=== PATIENT | female | born 1940 ===

== ENCOUNTER 2022-07-18 11:37 | Outpatient (CLI) | payer SELFPAY | END 2022-07-18 11:38 | disposition EMS.NT | LOC: EMS 11:37 | DX: R42 Dizziness and giddiness (principal) ==

== ENCOUNTER 2024-09-30 11:04 | Observation (INO) ==
[2024-09-30 11:28] LABS: BASOPHILS % (AUTO) 0.4 %; EOSINOPHILS # (AUTO) 0.1 10^3/uL (0.0-0.7); EOSINOPHILS % (AUTO) 1.2 %; HGB - HEMOGLOBIN 11.8 g/dL (12.0-16.0); LYMPHOCYTES # (AUTO) 1.5 10^3/uL (1.5-3.5); LYMPHOCYTES % (AUTO) 29.9 %; MEAN CORPUSCULAR HEMOGLOBIN 30.5 pg (27.0-31.0); MEAN CORPUSCULAR HGB CONC 32.8 g/dL (32.0-36.0); MEAN PLATELET VOLUME 8.3 fL (7.9-10.8); MONOCYTES # (AUTO) 0.6 10^3/uL (0.0-1.0); MONOCYTES % (AUTO) 12.9 %; NEUTROPHILS # (AUTO) 2.7 10^3/uL (1.5-6.6); NEUTROPHILS % (AUTO) 55.2 %; PLT - PLATELET COUNT 273 10^3/uL (130-450); RED BLOOD COUNT 3.87 10^6/uL (4.20-5.40); RED CELL DISTRIBUTION WIDTH 12.3 % (12.0-15.0); WHITE BLOOD COUNT 4.9 x10^3/uL (4.8-10.8)
[2024-09-30 11:44] LABS: ALBUMIN 4.2 g/dL (3.2-5.5); ALBUMIN/GLOBULIN RATIO 1.4 (1.0-2.2); BILIRUBIN,TOTAL 1.1 mg/dL (0.2-1.0); CALCIUM 9.6 mg/dL (8.5-10.3); CREATININE 1.2 mg/dL (0.6-1.3); MAGNESIUM 1.8 mg/dL (1.7-2.3); POTASSIUM 3.6 mmol/L (3.5-4.5); TOTAL PROTEIN 7.3 g/dL (6.4-8.9)
--- NOTE | 2024-09-30 11:56 | XRAY Report ---
PROCEDURE: XR Chest 1V INDICATIONS: syncope TECHNIQUE: One view of the chest was acquired. COMPARISON: None FINDINGS: Surgical changes and devices: None. Lungs and pleura: No pleural effusions or pneumothorax. Lungs are clear. Atherosclerotic vascular calcification noted in the aortic arch. Chronic interstitial changes Mediastinum: Mediastinal contours appear normal. Heart size is normal. Bones and chest wall: No suspicious bony lesions. Overlying soft tissues appear unremarkable. IMPRESSION: No acute cardiopulmonary findings Reviewed by: Alton Artis MD on 09/30/2024 10:55 AM [facility] Approved by: Alton Artis MD on 09/30/2024 10:55 AM [facility] Station ID: [id number]
[2024-09-30 12:01] LABS: BILIRUBIN,URINE NEGATIVE (NEGATIVE); CLARITY,URINE CLOUDY (CLEAR); GLUCOSE, URINE (UA) >=1000 mg/dL (NEGATIVE); KETONES,URINE (UA) NEGATIVE (NEGATIVE); LEUKOCYTE ESTERASE, URINE MODERATE (NEGATIVE); NITRITE,URINE NEGATIVE (NEGATIVE); OCCULT BLOOD,URINE SMALL (NEGATIVE); PROTEIN,URINE TRACE mg/dL (NEGATIVE); UROBILINOGEN,URINE 0.2 (NORMAL) E.U./dL (NORMAL)
--- NOTE | 2024-09-30 12:04 | ED Physician Documentation ---
History of Present Illness Stated complaint Stated Complaint: SYNCOPE Chief complaint Chief Complaint: Neuro History obtained from History obtained from: Patient and Family (Son) History of Present Illness Timing: Prior to arrival Additonal information Additional information: Patient is an 84-year-old female with past medical history of syncopal episodes, history of hypertension and CKD stage III. Patient was brought in by EMS today after she had a syncopal episode around 1015. Patient's symptoms started around 1015 while she was washing chicken she felt slightly lightheaded and fell backwards. Daughter witnessed this event stating she had cramping in her right arm twice when this occurred. Meds/Allgy Home Medications Ambulatory Orders Medication Instructions Recorded Confirmed alendronate 70 mg tablet (Fosamax) 70 mg PO QWEEK 09/30/24 09/30/24 empagliflozin 25 mg tablet 25 mg PO DAILY 09/30/24 09/30/24 (Jardiance) levothyroxine 88 mcg tablet 88 mcg PO DAILY 09/30/24 09/30/24 (Euthyrox) olmesartan 40 mg PO DAILY 09/30/24 09/30/24 Allergies Allergies Allergy/AdvReac Type Severity Reaction Status Date / Time No Known Drug Allergies Allergy Verified 09/30/24 11:42 [facility] Medical History Medical History (Updated 09/30/24 @ 14:26 by Autumn Jackson MD) Seizure disorder Osteoporosis Type II diabetes mellitus, well controlled Hypertension Family History Family History (Updated 09/30/24 @ 17:51 by Autumn Jackson MD) Father No problems noted. Mother Pancreatic cancer Sister No problems noted. Son Well adolescent visit Daughter Well adolescent visit Social History Social History (Updated 09/30/24 @ 18:21 by Autumn Jackson MD) Smoking Status: Former smoker If you are a former smoker, when did you quit? (Date/Year): 1962 Number of Years Smoked: 8 How many cigarettes a day do you smoke? (20 cigarettes=1 Pk): 20 Second hand tobacco smoke exposure: No Do you dip or chew tobacco?: No Do you vape?: No Living arrangement: At home Marital Status: Living Condition: With family More Information: Relationship: DPOA Living Situation Details: From [place]. In this country for decades. Was living in [place]. a few years ago. Children have decided she should not be living by herself and she now lives with a son in [place] (she has 4). Has a daughter who lives in [place]. Visiting daughter now. Daughter kimmy jacob goes up in the [place] and take mom, because patient's son in law is [place]. Had one ER visit in [place] for this problem. Physical Activity: Walking Level: Independent Physical - Functional Details: Cooks, Cleans, does not drive because she never did. Never uses durable medical equipment. Do you feel safe in your home environment?: Yes Suffered physical, verbal, emotional, or financial abuse?: No ETOH Use: None Substance Use: denies use Are you sexually active?: No Retired: Yes Exam Constitutional normal general appearance HENMT normocephalic Eyes PERRL and EOMs intact bilaterally Neck/C-Spine visual inspection normal and trachea midline Lymph no lymphadenopathy noted Chest inspection of chest normal and palpation of chest normal Respiratory breath sounds equal bilaterally, normal respiratory effort and clear to auscultation bilaterally Cardiovascular normal heart rate noted, regular rhythm noted, no gallop and no rub Gastrointestinal abdomen normal to inspection and abdomen soft to palpation Genitourinary no CVA tenderness Back/Pelvis spine normal to inspection No spine tenderness and no cervical spine tenderness Extremities normal to inspection No pain on palpation of upper and lower extremities Skin skin color normal, no lesions, no ecchymosis noted and no wounds Results Vitals Vitals: Vital Signs - 24 hr 09/30/24 11:17 09/30/24 11:23 09/30/24 11:37 Pulse Rate 64 64 Pulse Rate [Sitting] Pulse Rate [Standing] Pulse Rate [Supine] Respiratory Rate 26 H 19 Blood Pressure 133/64 H 133/64 H Blood Pressure [Sitting] Blood Pressure [Standing] Blood Pressure [Supine] O2 Saturation 96 96 Oxygen Delivery Method Room Air O2 Source Room air Room air Pain Intensity 0 0 09/30/24 12:04 09/30/24 13:23 Pulse Rate 72 Pulse Rate [Sitting] 69 Pulse Rate [Standing] 70 Pulse Rate [Supine] 66 Respiratory Rate 16 Blood Pressure 157/82 H Blood Pressure [Sitting] 156/81 H Blood Pressure [Standing] 157/82 H Blood Pressure [Supine] 145/71 H O2 Saturation 98 Oxygen Delivery Method O2 Source Room air Pain Intensity 0 Oxygen O2 Source Room air Labs Labs: Laboratory Tests 09/30/24 09/30/24 11:22 11:53 WBC 4.9 RBC 3.87 L Hgb 11.8 L Hct 36.0 L MCV 93.0 MCH 30.5 MCHC 32.8 RDW 12.3 Plt Count 273 MPV 8.3 Neut # (Auto) 2.7 Lymph # (Auto) 1.5 [place] # (Auto) 0.6 Eos # (Auto) 0.1 Baso # (Auto) 0.0 Absolute Nucleated RBC 0.00 Nucleated RBC % 0.0 Sodium 134 L Potassium 3.6 Chloride 100 L Carbon Dioxide 27 Anion Gap 7.0 BUN 19 Creatinine 1.2 Estimated GFR (MDRD) 43 L Glucose 133 H Calcium 9.6 Magnesium 1.8 Total Bilirubin 1.1 H AST 22 ALT 14 Alkaline Phosphatase 51 Troponin I High Sens 5.0 Total Protein 7.3 Albumin 4.2 Globulin 3.1 Albumin/Globulin Ratio 1.4 Urine Color YELLOW Urine Clarity CLOUDY Urine pH 6.0 Ur Specific [place] 1.010 Urine Protein TRACE Urine Glucose (UA) >=1000 H Urine Ketones NEGATIVE Urine Occult Blood SMALL H Urine Nitrite NEGATIVE Urine Bilirubin NEGATIVE Urine Urobilinogen 0.2 (NORMAL) Ur Leukocyte Esterase MODERATE H Urine RBC 0-5 Urine WBC >25 H Urine WBC Clumps PRESENT Ur Squamous Epith Cells FEW Squamous Urine Bacteria Moderate H Ur Microscopic Review INDICATED Urine Culture Comments INDICATED PD Medical Decision Making ED course Complexity details: reviewed old records and reviewed results ED course: Patient is an 84-year-old female presenting after syncopal episode at home witnessed by daughter lasting about 1 to 2 minutes. Patient has history of this and this episodes improved with similar to her previous. Her last episode of this was 1 week ago and prior to this it was about 2 years ago. Family notes it seems emotionally related and she has had workups in the past including ultrasounds stress tests and MRIs showing no acute findings. She previously was on antiepileptics for this but discontinued them due to adverse effects. She last went to the hospital for this about 2 years ago and had a negative workup so she was discharged home. They noted these episodes started back in 2018. Other than being emotionally charged they have no reasons for why they occur to patient. She notes symptoms feel similar she denies any persistent symptoms at this time. She is feeling more tired and slightly lightheaded while she was washing the chicken this morning. She denies hitting her head and episode lasted for about 1 to 2 minutes. Patient denies any pain in upper or lower extremities. Vitals are stable on arrival. Labs are stable here in the emergency department no significant leukocytosis signs of anemia CMP abnormalities. Urine does show signs of UTI. CT head shows chronic vascular changes but no acute findings. Chest x-ray shows no acute causes for patient's syncopal event Patient updated on reassuring findings however discussed with the hospitalist and they are agreeable with admission for cardiac monitoring given syncopal episode for the second time within the same week. Concern for possible arrhythmia as she has not had any imaging or workup done since 2018 for these symptoms. Patient did have an episode of incontinence with her syncopal episode as well as an episode of spasming of her arm she was not aware during these episodes. Hospitalist was made aware of this discussed further treatment patient can have an EEG done in the outpatient setting with cardiac monitoring here in the hospital. Patient and family agreeable with this plan. Discharge Plan Discharge Patient Disposition: ED Place in Observation Condition: Fair Clinical Impression: Episode of syncope Interventions: ED Admission Assessment Last Done: 09/30/24 14:43
[2024-09-30 12:10] LABS: BACTERIA,URINE Moderate /HPF (None Seen); RBC,URINE 0-5 /HPF (0-5); SQUAMOUS EPITHELIAL CELL,UR FEW Squamous (<= Few); WBC CLUMPS,URINE PRESENT; WBC,URINE >25 /HPF (0-5)
--- NOTE | 2024-09-30 12:13 | CT Report ---
PROCEDURE: CT Head WO INDICATIONS: head injury from fall TECHNIQUE: Helical axial CT of the brain was obtained without contrast and reformatted in multiple p lanes. Radiation dose reduction was achieved using automated exposure control or adjustment of mA and /or kV according to patient size. COMPARISON: None FINDINGS: CSF spaces: Ventricles are appropriate in size and position. No hydrocephalus. Basal cisterns unre markable. Brain: No midline shift. No intracranial masses or hemorrhage. Brown-white matter interface is norm al. Moderate atrophy and multifocal white matter chronic ischemic change noted. Atherosclerotic vascular calcification noted in the cavernous segments of both internal carotid arteries. Skull and face: Calvarium and skull base are unremarkable without suspicious lesion. Sinuses: Complete opacification of the left sphenoid sinus with osseous wall thickening IMPRESSION: Atrophy and chronic ischemic change without intracranial hemorrhage or mass effect. Chronic sphenoid mucosal sinus disease Reviewed by: Alton Artis MD on 09/30/2024 11:12 AM [facility] Approved by: Alton Artis MD on 09/30/2024 11:12 AM [facility] Station ID: [id number]
[2024-09-30] MEDS: cefTRIAXone 1 GM in SODIUM CHLORIDE 0.9% MINIBAG 100 ML IV STA (13:57)
--- NOTE | 2024-09-30 14:26 | HISTORY & PHYSICAL EXAMINATION ---
Chief Complaint Chief Complaint Chief Complaint: passing out after being dizzy History of Present Illness Admitted From Admitted From:: home with ambulance History Obtained From Records Reviewed: Expanse History obtained from: patient Exam Limitations: none. She prefers Kiswahili and I am bilingual. History of Present Illness HPI Comment/Other: This patient is a female who has a history of high blood pressure, hypothyroidism, diabetes, osteoporosis and recurrent lightheadedness/dizziness with occasional syncope since 2012. Every time she gets lightheaded or dizzy it usually lasts less than 10 minutes. However,, approximately 2017, she had luis fernando syncope and was evaluated in [place] and had quite a bit of a workup where it was felt that she may be having seizures and was placed on seizure medications. She is followed by Dr. Isauro Machado in [place]. After couple of years that medication was stopped because the patient felt asymptomatic and she did not want to take it anymore. In July 2022, EMS was called to the house because she was feeling lightheaded but she never had syncope. Declined transfer. In looking at the EMS report I am seeing that she had normal sinus rhythm with a normal AR interval and no blocks were seen. Blood pressure was a little low at 105. She tells me that the dizziness has been going on for very long time. Again sometimes associated with syncope. Sometimes not. She does not really get much warning. She denies any chest pain, palpitations, shortness of breath, Edema, or Orthopnea. The episodes were not associated with any specific exertion. Sometimes she is sitting down, sometimes she standing up. When she wakes up from them she is sometimes momentarily confused. But usually knows where she is and what is going on almost immediately. She is usually incontinent of urine. Twice, she has been incontinent of stool. She denies any memory loss. She states sometimes, with the seizures, she feels as if her ears are plugged up. She then had another episode of lightheaded and dizziness with syncope a week ago. Did not want to come to the ER. Today she was standing at the kitchen counter, washing some chicken, when she suddenly felt very tired, went to go sit down on a kitchen stool, and the next thing she knows, she is on the ground. No chest pain, no palpitations, no change in vision. Her daughter heard a crashing sound in the kitchen and went to see what was going on and found her mother on the floor looking up. She was not responsive for about 30 seconds and then able to answer questions. One of her hands was shaking and the right arm felt like it was getting a cramp. Was incontinent of urine. Subsequently she has recovered. There is no headache. No slurred speech. No blurred vision. No dysesthesia of 1 side of her body. Her blood pressure in the emergency room was 133/64. Pulse was 64. Respirations 26. 96% saturated on room air. Telemetry had normal sinus rhythm. EKG has normal sinus rhythm without any blocks. Her lab work had a sodium of 134. BUN and creatinine are relatively normal at 19 and 1.2. Random glucose 133 and a diabetic. Total bili is mildly elevated at 1.1 with normal liver enzymes. White cell count is normal at 4.9. Hemoglobin slightly low at 11.8. MCV is 93. We have no old records on her so I cannot tell if this anemia is new, or chronic. In looking at her urinalysis she may have a UTI. Specific gravity is normal at 1.010. So no dehydration. She does have glucosuria, occult blood, moderate leukocyte esterase but negative nitrates. White cell count greater than 25. She has a few squamous cells, moderate urine bacteria. Urine culture will be done Chest x-ray has no acute cardiopulmonary findings. CT of the head has atrophy and chronic ischemic changes without intracranial hemorrhage or mass effect. She has chronic sphenoid mucosal sinus disease. The emergency room provider and I discussed this case. This elderly female may or may not have seizures depending on the verbal history given by the family. But there is no indication that she has a history of first-degree, second-degree or third-degree heart block. There is also no recollection of her having any arrhythmia such as atrial fibrillation, SVT. She does not have congestive heart failure and the family says that as far as they know she does not have heart problems so I do not think there is nonsustained V. tach on the basis of ejection fraction. The patient will be placed in observation, placed on telemetry, and I will obtain an echo and an MRI. Meds/Allgy Home Medications Ambulatory Orders Medication Instructions Recorded Confirmed alendronate 70 mg tablet (Fosamax) 70 mg PO QWEEK 09/30/24 09/30/24 empagliflozin 25 mg tablet 25 mg PO DAILY 09/30/24 09/30/24 (Jardiance) levothyroxine 88 mcg tablet 88 mcg PO DAILY 09/30/24 09/30/24 (Euthyrox) olmesartan 40 mg PO DAILY 09/30/24 09/30/24 Allergies Allergies Allergy/AdvReac Type Severity Reaction Status Date / Time No Known Drug Allergies Allergy Verified 09/30/24 11:42 [facility] Medical History Medical History (Updated 09/30/24 @ 14:26 by Autumn Jackson MD) Seizure disorder Osteoporosis Type II diabetes mellitus, well controlled Hypertension Family History Family History (Updated 09/30/24 @ 17:51 by Autumn Jackson MD) Father No problems noted. Mother Pancreatic cancer Sister No problems noted. Son Well adolescent visit Daughter Well adolescent visit Social History Social History (Updated 09/30/24 @ 18:21 by Autumn Jackson MD) Smoking Status: Former smoker If you are a former smoker, when did you quit? (Date/Year): 1962 Number of Years Smoked: 8 How many cigarettes a day do you smoke? (20 cigarettes=1 Pk): 20 Second hand tobacco smoke exposure: No Do you dip or chew tobacco?: No Do you vape?: No Living arrangement: At home Marital Status: Living Condition: With family Relationship: DPOA Living Situation Details: From [place]. In this country for decades. Was living in [place]. a few years ago. Children have decided she should not be living by herself and she now lives with a son in [place] (she has 4). Has a daughter who lives in [place]. Visiting daughter now. Daughter sometimes goes up in the [place] and take mom, because patient's son in law is [place]. Had one ER visit in [place] for this problem. Physical Activity: Walking Level: Independent Physical - Functional Details: Cooks, Cleans, does not drive because she never did. Never uses durable medical equipment. Do you feel safe in your home environment?: Yes Suffered physical, verbal, emotional, or financial abuse?: No ETOH Use: None Substance Use: denies use Are you sexually active?: No Retired: Yes POLST Patient has POLST: No POLST Status: Full Code Review of Systems Constitutional Denies: Fatigue, Fever, Chills, Malaise, Weakness, Night sweats or Changes in appetite or eating habits (eats well and lack appetite for just this moment) Eyes Denies: Blurry vision, Field loss, Vision loss or Seeing flashes Ears, nose, mouth, and throat Reports: Hearing loss, Change in hearing and Vertigo; Denies: Ear pain, Ear discharge, Nasal congestion, Post nasal drip, Nasal obstruction, Throat pain, Neck pain or Throat swelling Cardiovascular Reports: Syncope and lightheadedness; Denies: Irregular heart rate, chest pain, palpitations, edema, swelling of feet/ankles, shortness of breath with exertion, shortness of breath when lying down, Decreased exercise tolerance or leg pain with exertion Respiratory Denies: Shortness of breath, Cough, Sputum production, Change in phlegm color, Wheezing or Pleuritic pain Gastrointestinal Denies: Abdominal pain, Abdominal distention, Nausea, Vomiting, Poor appetite, Heartburn, Constipation or Change in bowel habits Genitourinary Denies: Painful urination, Urinary frequency, Urinary urgency, Nocturia, Urinary incontinence or Vaginal bleeding Musculoskeletal Denies: Neck pain, Extremity pain or Extremity swelling Integumentary/Breast Denies: Rash, Itching or Dryness Neurological Reports: Dizziness, Vertigo and Seizure-like activity; Denies: Headache, General weakness, Focal weakness, Weakness in extremities, Numbness in extremities, Lack of coordination, Memory problems, Behavioral changes, Slurred speech or Difficulty communicating thoughts Psychiatric Denies: Depression, Anxiety, Mood swings or Panic attacks Endocrine Denies: Fatigue Hematologic/Lymphatic Denies: Anemia, Easy bruising or Petechiae Allergic/Immunologic Denies: Hives, Throat swelling or Wheezing Prior Level of Functionality: Lately independent with activities of daily living. Does not use any durable medical equipment. Travels extensively between all of the houses that her children have and is active in the life with regards to cooking, cleaning. Exam Exam Delightful 4 foot 10 inch female who is 50 kg. Alert, lucid. She has her son on the phone to hear the conversation. Constitutional normal general appearance Short statured. Nourished, well-developed, well-groomed HENMS normocephalic, head/scalp atraumatic and hearing grossly normal bilaterally Eyes PERRL, EOMs intact bilaterally, conjunctivae normal and no scleral icterus Neck/C-Spine visual inspection normal and cervical spine nontender Lymph no lymphadenopathy noted Chest inspection of chest normal Respiratory breath sounds equal bilaterally, normal respiratory effort, clear to auscultation bilaterally, no wheezes, no rales and no retractions Cardiovascular normal heart rate noted, regular rhythm noted, no gallop and no murmur Gastrointestinal abdomen normal to inspection, abdomen soft to palpation, nontender to palpation and nontender to percussion Back/Pelvis spine normal to inspection and no lumbar spine tenderness Extremities normal to inspection, normal to palpation, no tenderness and full ROM Left hand at the base of her thumb has either tenosynovitis or osteoarthritis causing clicking and pain. No effusion no warmth. Neurology animation camera operator II-XII intact, no movement abnormality noted, no focal motor deficit noted and no sensory deficits noted Psychiatry mental status grossly normal Skin skin color normal, no rash and no lesions Conclusion/Plan Problem List (1) Episode of syncope: Plan: Unwitnessed episode. History of a vague seizure disorder in the past. Differential diagnosis includes arrhythmia as a cause of syncope, true seizure disorder. Could she have had orthostatic syncope? Plan: Observation status Telemetry monitoring for arrhythmia I will attempt to find out what [facility] she saw in [place] in 2018 Get records from that [facility] MRI of the brain Echocardiogram in the morning If all of this is negative, I would recommend resuming her seizure drug but she would have to find the name. I also have to find out who her primary care provider is. (2) Type II diabetes mellitus, well controlled: Plan: Jardiance is not on formulary. Plan: Check A1c in the morning Sliding scale before meals will be ordered (3) Hypertension: Plan: She is on olmesartan. We do not have that on formulary. I will order losartan as a substitution at 50 mg daily. Will check her blood pressure every shift. Adjust medications as needed. (4) Anemia: Plan: Review of systems negative for changes in bowel habits. Gastric ulcers. Hematuria. She has good nutrition so I doubt nutritional deficit. Plan: Fecal occult stool check. I will order anemia panel for the morning (5) Abnormal urinalysis: Plan: Indications in the UA that she might have a UTI. I will give her single dose fosfomycin. Await culture results. Lab Results 09/30/24 11:22 09/30/24 11:22
[2024-09-30] MEDS ORDERED: ACETAMINOPHEN 325 MG TABLET PO PRN (15:08)
[2024-09-30] MEDS ORDERED: ALENDRONATE 70 MG TABLET PO SCH (15:08)
[2024-09-30] MEDS ORDERED: ONDANSETRON ODT 4 MG TABLET TL PRN (15:08)
[2024-09-30] MEDS ORDERED: oxyCODONE 5 MG TABLET PO PRN (15:08)
[2024-09-30] MEDS ORDERED: SODIUM CHLORIDE FLUSH 0.9% 10 ML SYRINGE IVP PRN (15:08)
[2024-09-30] MEDS ORDERED: ONDANSETRON 4 MG/2 ML VIAL IVP PRN (15:08)
[2024-09-30] MEDS: FOSFOMYCIN TROMETHAMINE 3 GM PACKET PO STA (15:35)
[2024-09-30] MEDS: SODIUM CHLORIDE FLUSH 0.9% 10 ML SYRINGE IVP SCH (18:30)
[2024-09-30] MEDS: FOSFOMYCIN TROMETHAMINE 3 GM PACKET PO ONE (20:01)
[2024-10-01 05:40] LABS: ABSOLUTE RETICS # AUTO 0.072 10^6/uL (0.020-0.110); BASOPHILS % (AUTO) 0.3 %; EOSINOPHILS # (AUTO) 0.1 10^3/uL (0.0-0.7); EOSINOPHILS % (AUTO) 1.2 %; HCT - HEMATOCRIT 33.9 % (37.0-47.0); HGB - HEMOGLOBIN 11.5 g/dL (12.0-16.0); LYMPHOCYTES # (AUTO) 1.5 10^3/uL (1.5-3.5); LYMPHOCYTES % (AUTO) 26.6 %; MEAN CORPUSCULAR HGB CONC 33.9 g/dL (32.0-36.0); MEAN CORPUSCULAR VOLUME 91.4 fL (81.0-99.0); MEAN PLATELET VOLUME 8.8 fL (7.9-10.8); MONOCYTES # (AUTO) 0.7 10^3/uL (0.0-1.0); MONOCYTES % (AUTO) 12.1 %; NEUTROPHILS # (AUTO) 3.4 10^3/uL (1.5-6.6); NEUTROPHILS % (AUTO) 59.5 %; PLT - PLATELET COUNT 270 10^3/uL (130-450); RED BLOOD COUNT 3.64 10^6/uL (4.20-5.40); RED BLOOD COUNT 3.71 10^6/uL (4.20-5.40); RED CELL DISTRIBUTION WIDTH 12.2 % (12.0-15.0); RETICULOCYTE COUNT % (AUTO) 1.99 % (0.5-2.3); WHITE BLOOD COUNT 5.8 x10^3/uL (4.8-10.8)
[2024-10-01 05:59] LABS: BUN - BLOOD UREA NITROGEN 18 mg/dL (6-20); CALCIUM 9.3 mg/dL (8.5-10.3); CARBON DIOXIDE - CO2 24 mmol/L (21-32); CHLORIDE 102 mmol/L (101-111); CHOL/HDL RATIO 2.7 (<4.4); CHOLESTEROL 184 mg/dL; GFR - MDRD 53 (>89); GLUCOSE 92 mg/dL (74-104); HDL CHOLESTEROL 68 mg/dL; IRON 56 ug/dL (50-212); LDL CHOLESTEROL,CALCULATED 95 mg/dL; LDL/HDL RATIO 1.4 (<4.4); POTASSIUM 3.8 mmol/L (3.5-4.5); SODIUM 133 mmol/L (135-145); TRANSFERRIN 187 mg/dL (203-362); TRIGLYCERIDES 106 mg/dL; VLDL CHOLESTEROL 21 mg/dL
[2024-10-01 06:07] LABS: % IRON SATURATION 22 % (20-50); IRON 58 ug/dL (50-212); TOTAL IRON BINDING CAPACITY 266 ug/dL (250-450); TRANSFERRIN 190 mg/dL (203-362)
[2024-10-01] MEDS: LEVOTHYROXINE 88 MCG TABLET PO SCH (08:10)
[2024-10-01] MEDS ORDERED: LOSARTAN 50 MG TABLET PO SCH (09:00)
[2024-10-01] MEDS: LOSARTAN 50 MG TABLET PO SCH (09:30)
--- NOTE | 2024-10-01 10:40 | PHARMACY PROGRESS NOTE ---
Best Possible Medication History Admit Date and Time: 09/30/24 552171 Home Medications Medication Instructions Recorded Confirmed Type alendronate 70 mg tablet (Fosamax) 70 mg PO .Tuesday09/30/24 10/01/24 History empagliflozin 25 mg tablet 25 mg PO DAILY 09/30/24 09/30/24 History (Jardiance) levothyroxine 88 mcg tablet 88 mcg PO DAILY 09/30/24 09/30/24 History (Euthyrox) olmesartan 40 mg PO DAILY 09/30/24 09/30/24 History Processed by: Pharmacy Medications reviewed in ED?: No Medication History completed: Yes Patient Interview: Completed (BY EXECUTIVE SERVICES ADMINISTRATORMIKAYLA) Secondary Source(s): Prescription bottles [facility] Statement: As the person ultimately responsible for medication therapy, providers are able to order a medication from an existing home medication list in [facility] via the "Reconcile Routine" prior to Confirmation of that medication by client technical support associate. Such practice is discouraged except when the physician, in their clinical judgment, deems that a medical need exists for a medication without regard to previous use.
[2024-10-01 11:40] VITALS: O2SAT 96
--- NOTE | 2024-10-01 11:40 | Discharge Summary ---
"Discharge Summary Admit Date: 09/30/24 Discharge Date: 10/01/24 Discharging Provider: Autumn Jackson MD Primary Care Provider: Isauro Machado MD [facility] in [place] ([address] [place] [address]) Code Status: Attempt Resuscitation DIAGNOSES Discharge Diagnoses with Status of Each Condition: 1. Syncope 2. History of seizure disorder 3. Hypertension 4. Type 2 diabetes mellitus, controlled, not on long-term insulin 5. Mild anemia 6. UTI HPI History of Present Illness: Please see detailed history and physical. Patient was admitted with syncope. She has a longstanding history of vertigo/near syncope, and syncope. She was diagnosed with a seizure disorder years ago and has been off of her medications CONSULTS | PROCEDURES Procedures: 1. CT of the head that is negative for stroke or acute changes 2. Echocardiogram done with final results pending at the time of discharge 3. Urine culture results pending at the time of discharge with abnormal [facility] COURSE Hospital Course: Patient was placed in observation status for monitoring of telemetry, any other episodes of possible seizure. None occurred. On admission she was stable neurologically and remained stable. She is confused by the use of Jardiance. She thought that this was for blood pressure. I explained to her that Jardiance is for diabetes. That her olmesartan is for blood pressure. I also called [facility] [place]. She is a patient at the [address] [place] [address] medicine clinic. I have left a message for that physician or nurse to give me a call that is involved in her care so I can name that seizure drug and put her back on it. Because of her abnormal urinalysis indicating possible UTI she was given 1 dose of fosfomycin. She is discharged in stable condition. Greater than 30 minutes was spent coordinating discharge. I had to do extra counseling for her and her family to describe each of her medications and what each of her medications were for. For some reason she feels that the Jardiance is a blood pressure pill. And the family is surprised that she is diagnosed with diabetes. I have also been waiting for return phone call from the [facility] to let me know what the seizure drug is. At the time of this dictation and the patient's discharge, I still do not know that medication. I have asked the patient to make sure she gives them a call and follows up with him on this. It is important that she go back on her seizure medication. ALLERGIES Allergies Allergy/AdvReac Type Severity Reaction Status Date / Time No Known Drug Allergies Allergy Verified 09/30/24 11:42 MEDICATIONS Ambulatory Orders Medication Instructions Recorded Confirmed alendronate 70 mg tablet (Fosamax) 70 mg PO .Tuesday09/30/24 10/01/24 empagliflozin 25 mg tablet 25 mg PO DAILY 09/30/24 09/30/24 (Jardiance) levothyroxine 88 mcg tablet 88 mcg PO DAILY 09/30/24 09/30/24 (Euthyrox) olmesartan 40 mg PO DAILY 09/30/24 09/30/24 PHYSICAL EXAM AT DISCHARGE General Appearance: positive No acute distress, Alert and Other (She is a tiny female at 4 foot 10 inches tall, 50 kg. Well-nourished well-groomed. Very pleasant lady.) Eyes Bilateral: positive PERRL and EOMI ENT: positive No signs of dehydration Neck: positive No JVD; negative Stiff neck Respiratory: positive No respiratory distress and Breath sounds nml Cardiovascular: positive Regular rate & rhythm, No murmur and No gallop Abdomen: positive Non-tender and Nml bowel sounds Skin: positive Warm and Dry Extremities: positive Non-tender, Full ROM and No pedal edema Neurologic/Psychiatric: positive Oriented x3, CN's nml (2-12), Motor nml and Sensation nml LABS 10/01/24 05:14 10/01/24 05:14 TIME SPENT Time Spent in Discharge (Minutes): 40 Discharge Plan Discharge Patient Disposition: Home, Self Care Condition: Fair Medically Cleared Date:: 10/01/24 Prescriptions: Continued levothyroxine [Euthyrox] 88 mcg tablet 88 mcg PO DAILY Jardiance 25 mg tablet 25 mg PO DAILY alendronate [Fosamax] 70 mg tablet 70 mg PO .TUESDAY Rx Instructions: ONCE A WEEK ON WEDNESDAYS olmesartan 40 mg PO DAILY Diet: Diabetic Health Concerns: Usted fue ingresado nuevamente en el hospital porque tuvo otro episodio de desmayo. Nos dices que llevas muchos aos desmayndote. Tiene un diagnstico de trastorno convulsivo deonte causa de wilson desmayo. Te desmayaste otra vez despus de estar en la cocina. Ests de pie, limpiando. De repente te sentiste muy, muy cansado tratando de encontrar el taburete para sentarte cuando de repente perdiste el conocimiento. Tu hija escuch un brianne golpe y te encontr en el suelo con los ojos abiertos y el brazo derecho temblando. Haba perdido el control de wilson miccin. Hemos hecho ivan tomografa computarizada de tu avni. Ivan resonancia magntica de tu avni. Ivan ecografa de tu corazn. Todos tyrell normales. Sospechamos firmemente que usted tiene un trastorno convulsivo y necesita volver a carole wilson medicamento para las convulsiones. usted tuvo ivan infeccin del tracto urinario y la tratamos con ivan dosis de antibitico. No deberas necesitar ms antibiticos. Plan of Treatment: 1. Verifique con el Dr. Machado el nombre del medicamento para las convulsiones que yobany. Necesita volver a carole el medicamento para las convulsiones. Si quiere asegurarse de que se trata de convulsiones, hay ivan prueba ms que puede realizar y se llama electroencefalograma. No hacemos eso en [facility] Dr. Machado tendra que derivarlo a un neurlogo para que lo madina. 2. Repasamos tu lista de medicamentos y quiero decirte para qu sirve cada medicamento: -olmesartn para la presin arterial -Jardiance es para tu diabetes. -Synthroid es para tu tiroides baja. -El alendronato es para la osteoporosis. 3.Tienes ivan anemia muy leve. La cantidad normal de adina en ivan radha es de 12 g de hemoglobina. Tenas 11,5. Revisamos anlisis de adina para anemia y hasta ahora wilson rodolfo y B12 son normales. Asegrese de que wilson mdico realice anlisis de adina regulares ivan vez al ao para verificar que wilson anemia no empeore. Print Language: Romansh/Castilian Patient Instructions: Epilepsy How Seizures Affect Body, Electroencephalogram Ch, Epilepsy Seizures Follow-up Care: Isauro Machado [Other]"
--- NOTE | 2024-10-01 11:40 | MRI Report ---
PROCEDURE: MRI Brain WO INDICATIONS: seizure vs syncope TECHNIQUE: Noncontrast axial T1 spin echo, axial T2 fast spin echo, sagittal and axial FLAIR, coronal T2 fast sp in echo, axial gradient echo, axial diffusion and ADC through the brain. COMPARISON: None. FINDINGS: Image quality: Excellent. CSF Spaces: Basal cisterns are patent. No extra-axial fluid collections. Ventricles are normal in size and shape. Brain: No intracranial masses or hemorrhage. Brown/white matter interface is normal. Brainstem appe ars normal. Diffusion-weighted images demonstrate no acute ischemic insult. Age-related global volu me loss and chronic microvascular ischemic changes. No chronic ischemic insults. Normal intravascula r flow voids are present. Skull and face: Calvarium has normal marrow signal. Bilateral lens replacements. The orbits are oth erwise normal in appearance. Sinuses: Mild paranasal sinus mucosal thickening. Opacification of the sphenoid sinuses. Mild left fa cet effusion.. IMPRESSION: 1.No acute intracranial abnormalities. 2.Age-related global volume loss and chronic microvascular ischemic changes. Reviewed by: Charly Carmona MD on 10/01/2024 11:39 AM PST Approved by: Charly Carmona MD on 10/01/2024 11:39 AM PST Station ID: [id number]
[2024-10-01 11:51] LABS: ESTIMATED AVERAGE GLUCOSE 123 mg/dL (70-100); HEMOGLOBIN A1c% 5.9 % (4.27-6.07)
== END 2024-10-01 16:08 | disposition home or self-care (01) ==
LOC: ED 11:04 → MS2 11:04
PROVIDERS: ADMIT Specialist; ATTEND Specialist
DX: R19.5 Other fecal abnormalities; N39.0 Urinary tract infection, site not specified; Z79.84 Long term (current) use of oral hypoglycemic drugs; G40.909 Epilepsy, unspecified, not intractable, without status epilepticus; I12.9 Hypertensive chronic kidney disease with stage 1 through stage 4 chronic kidney disease, or unspecified chronic kidney disease; Z91.81 History of falling; E03.9 Hypothyroidism, unspecified; Z87.891 Personal history of nicotine dependence; D64.9 Anemia, unspecified; N18.30 Chronic kidney disease, stage 3 unspecified; R32 Unspecified urinary incontinence; R55 Syncope and collapse; E11.22 Type 2 diabetes mellitus with diabetic chronic kidney disease